=== PATIENT | female | born 1950 | race Caucasian/White ===

== ENCOUNTER → 2017-01-05 | Outpatient (CLI) | payer MEDICARE, OTHER | END | disposition home or self-care (01) | LOC: GMAL 12:23 | PROVIDERS: ATTEND Family Medicine | DX: D51.3 Other dietary vitamin B12 deficiency anemia (principal); E55.9 Vitamin D deficiency, unspecified ==

== ENCOUNTER 2017-02-03 21:20 | Emergency (ER) | payer MEDICARE, OTHER ==
[2017-02-03] MEDS ORDERED: ALUMINUM & MAGNESIUM HYDROXIDE 30 ML UD PO ONE (21:39)
[2017-02-03] MEDS ORDERED: predniSONE 20 MG TAB PO ONE (21:39)
--- NOTE | 2017-02-03 22:38 | ED.PDOC ---
History of Present Illness - General Chief Complaint: General Stated Complaint: shortness of breath, tingling in arms Time Seen by Provider: 02/03/17 21:26 Source: patient Exam Limitations: no limitations - History of Present Illness Initial Comments: The patient is a 66-year-old female presenting to the emergency room secondary to feeling of shortness of breath and heart pounding after having taken her second dose of Macrobid. She had no similar reaction to her first dose this morning. She did get a flu shot this afternoon. She is completing treatment for a urinary tract infection with a second antibiotic. She is feeling better by the time she arrives here. Sensation has been in place for about 20 minutes. There is no rash. Her lungs are clear. She is obviously anxious but in no respiratory distress. She has had recent gastritis issues. Timing/Duration: 1/2 hour Severity: moderate Improving Factors: nothing Worsening Factors: nothing Allergies/Adverse Reactions: Allergies Ciprofloxacin [From Cipro] Allergy (Verified 02/03/17 21:26) Levofloxacin [From Levaquin] Allergy (Verified 02/03/17 21:26) Home Medications: Ambulatory Orders Atenolol [Tenormin] 25 mg PO DAILY 10/10/15 Review of Systems - Review of Systems Constitutional: States: no symptoms reported EENTM: States: no symptoms reported Respiratory: States: short of breath Cardiology: States: no symptoms reported, palpitations Gastrointestinal/Abdominal: States: see HPI Genitourinary: States: no symptoms reported Musculoskeletal: States: no symptoms reported Skin: States: no symptoms reported Neurological: States: anxiety Endocrine: States: no symptoms reported All other Systems: No Change from Baseline Past Medical History (General) - Patient Medical History Hx Seizures: No Hx Stroke: No Hx Dementia: No Hx Asthma: No Hx of COPD: No Hx Cardiac Disorders: Yes Hx Congestive Heart Failure: No Hx Pacemaker: No Hx Hypertension: Yes Hx Thyroid Disease: No Hx Diabetes: No Hx Gastroesophageal Reflux: No Hx Renal Disease: No Hx Cancer: No Hx of HIV: No Hx Hepatitis C: No Hx MRSA: No - Vaccination History Hx Tetanus, Diphtheria Vaccination: No Hx Influenza Vaccination: No Hx Pneumococcal Vaccination: Yes - today Immunizations Up to Date: Yes - Social History Hx Tobacco Use: Yes Hx Chewing Tobacco Use: No Hx Alcohol Use: Yes Hx Substance Use: No Hx Substance Use Treatment: No Hx Depression: Yes Hx Physical Abuse: No Hx Emotional Abuse: No Hx Suspected Abuse: No - Female History Patient is a Female of Child Bearing Age (10 -59 yrs old): No Patient : No Family Medical History - Family History Mother Family History: No Known Living Status: Physical Exam - Physical Exam General Appearance: Alert, Comfortable, No apparent distress Eye Exam: bilateral normal Ears, Nose, Throat: normal ENT inspection, normal pharynx Neck: full range of motion, supple Respiratory: chest non-tender, lungs clear, normal breath sounds, no respiratory distress, no accessory muscle use Cardiovascular/Chest: normal peripheral pulses, regular rate, rhythm, no edema Peripheral Pulses: radial,right: 2+, radial,left: 2+, dorsalis pedis,right: 2+, dorsalis pedis,left: 2+ Gastrointestinal/Abdominal: non tender, soft Rectal Exam: deferred Back Exam: normal inspection Extremity: normal range of motion, non-tender, normal inspection, no pedal edema , normal capillary refill 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 This is likely an intestinal reaction rather than a true allergy. For now she is going to discontinue the medication. She needs to take Pepcid 20 mg daily [id number] for the next 2 weeks. She needs to contact her primary care doctor for a different antibiotic tomorrow. ER warnings were given for any significant worsening. Departure - Departure Clinical Impression: Adverse drug reaction Qualifiers: Encounter type: initial encounter Qualified Code(s): T88.7XXA - Unspecified adverse effect of drug or medicament, initial encounter Disposition: Discharge to Home or Self Care Condition: Fair Departure Forms: ED Discharge - Pt. Copy, Patient Portal Self Enrollment Instructions: DI for Adverse Drug Reaction -- GI Intolerance Diet: bland diet Activity: increase activity as tolerated Referrals: Theo Damian III, MD [Primary Care Provider] - 1-2 Weeks Home Medications: Ambulatory Orders Atenolol [Tenormin] 25 mg PO DAILY 10/10/15 Additional Instructions: the patient is a 66-year-old female that appears to have had a negative reaction to Macrobid. This is likely an intestinal reaction rather than a true allergy. For now she is going to discontinue the medication. She needs to take Pepcid 20 mg daily [id number] for the next 2 weeks. She needs to contact her primary care doctor for a different antibiotic tomorrow. ER warnings were given for any significant worsening.
[2017-02-03 22:47] VITALS: BP 158/86; TEMP 98.4; O2SAT 97
== END 2017-02-03 22:47 | disposition home or self-care (01) ==
LOC: ER 21:20
DX: R06.02 Shortness of breath (principal); T37.8X5A Adverse effect of other specified systemic anti-infectives and antiparasitics, initial encounter; I10 Essential (primary) hypertension; Z87.891 Personal history of nicotine dependence; Z88.3 Allergy status to other anti-infective agents; Y92.9 Unspecified place or not applicable
CPT/HCPCS: 87086; J7512

== ENCOUNTER → 2017-02-14 | Outpatient (CLI) | payer MEDICARE, OTHER | END | disposition home or self-care (01) | LOC: GMAL 10:40 | PROVIDERS: ATTEND Family Medicine | DX: N39.0 Urinary tract infection, site not specified (principal) ==

== ENCOUNTER → 2017-08-01 | Outpatient (CLI) | payer MEDICARE, OTHER | LOC: GMAL 15:15 | PROVIDERS: ATTEND Family Medicine | DX: N30.00 Acute cystitis without hematuria (principal) ==

== ENCOUNTER → 2018-12-11 | Outpatient (CLI) | payer MEDICARE, OTHER ==
--- NOTE | 2018-12-11 14:38 | US ---
EXAM DESCRIPTION: Gall Bladder: ULTRASOUND. CLINICAL HISTORY: Generalized abdominal pain COMPARISON: None. TECHNIQUE: Transabdominal scanning: Aguilera-scale and Doppler modes. FINDINGS: Gallbladder: Normal size with echogenic layering stones mobile with patient change in position, 4 mm and 3.1 mm diameter. No fluid around the gallbladder. No wall thickening. 2.1 mm. Non-tender with transducer pressure. Common bile duct: caliber 4.5 mm within normal limits. Liver: Increased echogenicity; contour liver capsule smooth where seen. No fluid around the liver. Intrahepatic biliary ducts normal caliber. Doppler hepatopedal flow portal vein.. Long axis right lobe 14.0 Pancreas: normal size and echogenicity. Duct not seen. Aorta: Not measured. Right kidney: Long axis measures 9.8 cm. Mid renal cortical thickness 11 mm. No hydronephrosis, no perirenal fluid, no echogenic stones. IMPRESSION: 1. Liver normal size with minimal steatosis. Normal ducts and flow in the portal vein. Smooth capsule with no ascites. 2. Cholelithiasis with no wall thickening or fluid. Nontender with transducer pressure. Common bile duct normal caliber. 3. Pancreas negative. Electronically signed by: Yariel Sierra MD 12/11/2018 2:35 PM CDT
== END ==
LOC: US 12:31
PROVIDERS: ATTEND Family Medicine
DX: K76.0 Fatty (change of) liver, not elsewhere classified (principal); K80.20 Calculus of gallbladder without cholecystitis without obstruction